=== PATIENT | female | born 1955 | race Two or more races ===

== ENCOUNTER 2021-06-09 06:52 | Day surgery (SDC) | payer OTHER ==
[~2021-06-09 06:52] MED LIST: CYTOTEC200 MCG PO; TOPROL XL25 M1 PO
[2021-06-09] MEDS ORDERED: ZITHROMAX500 MG PO (12:22)
[2021-06-09] MEDS ORDERED: DICLOFENAC POTA50 MG PO (12:22)
== END 2021-06-09 16:35 | disposition home or self-care (01) ==
LOC: CIR.AMB 06:52
PROVIDERS: ATTEND Obstetrics & Gynecology
DX: N84.0 Polyp of corpus uteri (principal); N72 Inflammatory disease of cervix uteri; I10 Essential (primary) hypertension